=== PATIENT | female | born 1980 | race African-American/Black ===

== ENCOUNTER 2022-04-26 13:08 | Emergency (ER) | payer MEDICAID ==
[~2022-04-26] VITALS: Ht 167.6 cm; Wt 65.0 kg
[~2022-04-26 13:08] MED LIST: ALBU18HF2 IH; FLOV44 INH; LISI20TA31 MT; SIMV10TA97 MT; [UNRECOGNIZED DRUG - OTHER]
[2022-04-26 13:14] VITALS: BP 102/68
== END 2022-04-26 15:33 | disposition left against medical advice (07) ==
LOC: ER 15:32
DX: F10.129 Alcohol abuse with intoxication, unspecified (principal); Y90.9 Presence of alcohol in blood, level not specified
CPT/HCPCS: 99281